=== PATIENT | female | born 1975 | race Caucasian/White ===

== ENCOUNTER 2021-09-01 20:18 | Emergency (ER) | payer OTHER ==
[~2021-09-01] VITALS: Ht 152.4 cm; Wt 99.8 kg
[2021-09-01 20:34] VITALS: BP 126/78
--- NOTE | 2021-09-01 21:36 | NUR ---
Blood for labwork drawn from right arm per rn dialysis. Patient tolerated well.
[2021-09-01 21:46] LABS: BASOPHILS # (AUTO) 0.1 K/uL (0.00-0.22); BASOPHILS % (AUTO) 0.7 % (0.0-2.0); EOSINOPHILS # (AUTO) 0.2 K/uL (0-0.4); EOSINOPHILS % (AUTO) 1.8 % (0.0-4.0); HEMATOCRIT 37.7 % (36-48); HEMOGLOBIN 12.5 g/dL (12.0-16.0); LYMPHOCYTES # (AUTO) 3.1 K/uL (2.5-16.5); LYMPHOCYTES % (AUTO) 28.4 % (20.5-51.1); MEAN CORPUSCULAR HEMOGLOBIN 27 pg (27-31); MEAN CORPUSCULAR HGB CONC 33 g/dL (33-37); MEAN CORPUSCULAR VOLUME 80.7 fL (80-94); MONOCYTES # (AUTO) 0.6 K/uL (0.8-1.0); MONOCYTES % (AUTO) 5.9 % (1.7-9.3); NEUTROPHILS % (AUTO) 63.2 % (42.2-75.2); PLATELET COUNT (AUTO) 185 K/uL (140-450); RED BLOOD CELL COUNT(AUTO) 4.67 MIL/uL (4.20-5.40)
[2021-09-01 22:08] LABS: ALBUMIN 3.3 g/dL (3.4-5.0); CARBON DIOXIDE 28.7 mmol/L (21-32); CREATININE 0.6 mg/dL (0.6-1.3); POTASSIUM 3.7 mmol/L (3.5-5.1); TOTAL BILIRUBIN 0.2 mg/dL (0.0-1.0)
--- NOTE | 2021-09-01 22:11 | NUR ---
Patient ambulated to bed 4 with her family.
--- NOTE | 2021-09-01 22:30 | NUR ---
46 YO F W C/O lower abdominal pain x 3 days. Patient reported, lower abdominal pain for 3 days, no vaginal bleeding, no N/V/D. PMHx: DENIES
[2021-09-01] MEDS ORDERED: KETOROLAC 30 MG/ML VIAL IVP ONE (22:45)
[2021-09-01] MEDS ORDERED: ONDANSETRON 4 MG/2 ML VIAL IVP ONE (22:45)
[2021-09-01 22:59] LABS: APPEARANCE,URINE CLEAR (CLEAR); BILIRUBIN,URINE NEGATIVE (NEGATIVE); BLOOD, URINE TRACE-I (NEGATIVE); COLOR,URINE YELLOW (YELLOW); LEUKOCYTE ESTERASE ,URINE NEGATIVE (NEGATIVE); NITRITE, URINE NEGATIVE (NEGATIVE); PH,URINE 6.5 (5.0-9.0); UGLUCOSE NEGATIVE (NEGATIVE)
[2021-09-01] MEDS ORDERED: HYDROcodone/APAP 5/325 MG 1 TAB TAB PO ONE (23:05)
--- NOTE | 2021-09-01 23:11 | NUR ---
PT TAKEN TO US Addendum: 09/01/21 at 2349 by [email or web address] PT TAKEN TO CT
[2021-09-01 23:18] LABS: RBC,URINE 0-5 /HPF (0-5); WBC,URINE 0-5 /HPF (0-5)
--- NOTE | 2021-09-02 00:45 | NUR ---
PT STATES SHE HAS MUCH RELIF FROM Nitronex. PAIN 04/15
--- NOTE | 2021-09-02 01:05 | NUR ---
PT MADE AWARE ON PENDING CT RESULTS
[2021-09-02] MEDS ORDERED: BEN10 PO (01:38)
[2021-09-02] MEDS ORDERED: NITR100C7 PO (01:38)
[2021-09-02] MEDS ORDERED: NAPR-54 PO (01:38)
[2021-09-02 01:58] VITALS: BP 127/93
--- NOTE | 2021-09-02 01:59 | NUR ---
Patient discharged with v/s stable. Written and verbal after care instructions given and explained. Patient alert, oriented and verbalized understanding of instructions. Ambulatory with steady gait. All questions addressed prior to discharge. ID band removed. Patient advised to follow up with PMD. Rx of BENTYL, NAPROXEN & MACROBID given. Patient educated on indication of medication including possible reaction and side effects. Opportunity to ask questions provided and answered.
[2021-09-02] MEDS ORDERED: CIPR500T4 PO (03:27)
[2021-09-02] MEDS ORDERED: METR-435 PO (03:27)
== END 2021-09-02 01:59 | disposition home or self-care (01) ==
LOC: MED 20:18
DX: K57.32 Diverticulitis of large intestine without perforation or abscess without bleeding (principal); Z98.890 Other specified postprocedural states; Z79.2 Long term (current) use of antibiotics; Z79.1 Long term (current) use of non-steroidal anti-inflammatories (NSAID)
CPT/HCPCS: 36415; 80053; 81001; 83690; 84702; 85025; 87086; 99284; J1885; J2405